=== PATIENT | female | born 1985 | race Caucasian/White ===

== ENCOUNTER 2020-01-20 04:59 | Emergency (ER) | payer OTHER, MEDICAID, SELFPAY ==
--- NOTE | ~2020-01-20 | CT_ITS ---
EXAMINATION: CT abdomen pelvis wo con DATE: 01/20/2020 06:30 INDICATION: Left flank pain. Urinary tract infection. History of nephrolithiasis. TECHNIQUE: Computed tomography (CT) of the abdomen and pelvis was performed without intravenous contr ast. Automated exposure control and iterative reconstruction technique were employed. Exam dose: 644 .41 mGy-cm total exam DLP. COMPARISON: 01/28/2013 CT abdomen pelvis with IV contrast material FINDINGS: The lung bases are clear. Normal heart size. No pericardial or pleural effusion. The liver, gallbladder, bile ducts, spleen, pancreas and pancreatic duct, and adrenal glands and kidn eys are unremarkable. No urinary tract calculus or hydroureteronephrosis. Normal caliber of the abdom inal aorta. No intraperitoneal or retroperitoneal or pelvic mass lesion or adenopathy or ascites. Normal appendix. No bowel obstruction or intraperitoneal free air, bowel wall thickening or pneumatos is. Small fat-containing umbilical hernia. The uterus, urinary bladder, adnexal areas are unremarkable. Bilateral L5 pars interarticularis defects and associated grade 1 anterolisthesis at L5-S1. Included skeletal structures are otherwise unremarkable. 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 Reviewed, dictated and finalized at [facility].
[2020-01-20 05:06] VITALS: BP 145/91; PULSE 87; RESP 20; TEMP 36.4; O2SAT 100
--- NOTE | 2020-01-20 05:08 | ED.ABDPAIN ---
HPI - Abdominal Pain General Chief Complaint: Abdominal Pain Stated Complaint: abd pain/blood in urine Time Seen by Provider: 01/20/20 05:06 Source: patient Mode of arrival: ambulatory Limitations: no limitations History of Present Illness HPI narrative: Patient is a 34-year-old [place] female with a history of IgA nephropathy who presents for evaluation of hematuria, dysuria, frequency and urgency. Patient states onset of symptoms began yesterday. She has had associated suprapubic pain, pain in her lower back in a bandlike pattern. No colicky flank pain. No history of nephrolithiasis per patient. No fever, chills, nausea or vomiting. Patient follows with bomb squad officer at [facility]. Her last checkup was normal. She is not on any maintenance therapy or steroids for the HSP nephropathy. Patient denies vaginal bleeding or discharge. Related Data Home Medications Medication Instructions Recorded Confirmed albuterol sulfate INHALATION 01/20/20 ergocalciferol (vitamin D2) 01/20/20 losartan 01/20/20 omeprazole 01/20/20 Allergies Allergy/AdvReac Type Severity Reaction Status Date / Time Sulfa (Sulfonamide Allergy Intermediate Rash Verified 01/20/20 05:10 Antibiotics) codeine Allergy Mild Itching Verified 01/20/20 05:10 lisinopril Allergy Anaphylaxis Verified 01/20/20 05:10 Review of Systems Review of Systems: Narrative: CONSTITUTIONAL: Denies fever, chills, or sweats. CARDIOVASCULAR: Denies chest pain, palpitations, or edema. RESPIRATORY: Denies cough or dyspnea. GASTROINTESTINAL: Reports suprapubic pain, denies nausea, vomiting or diarrhea GENITOURINARY: Reports dysuria, hematuria, frequency, hesitancy SKIN: Denies rash or itching. MUSCULOSKELETAL: Reports lower back pain, denies flank pain NEUROLOGIC: Denies headache, numbness, or weakness. [facility] Past Medical History Medical History (Updated 01/20/20 @ 06:55 by Sadaf Jim MD) Anemia Anxiety Asthma Bronchitis Frequent headaches IgA nephropathy Nephrolithiasis Scoliosis Stage 1 chronic kidney disease Surgical History Surgical History (Updated 01/20/20 @ 05:10 by Sadaf Jim MD) H/O wisdom tooth extraction Exam Narrative: Exam Narrative: GENERAL: Awake, alert, conversant HEAD: Normocephalic, atraumatic. EYES: PERRLA and EOMI. ENT: Nares clear, no rhinorrhea or epistaxis. Mucous membranes moist. NECK: Supple. CHEST: No respiratory distress, breathing even and non labored HEART: Regular rate, sinus rhythm ABDOMEN: Suprapubic tenderness, lower lumbar tenderness, no CVA tenderness EXTREMITIES: Normal range of motion. No edema. SKIN: Warm, dry, no rash. NEURO:No focal deficits. Alert and oriented x3 Course Vital Signs Vital signs: Vital Signs Temperature 36.4 C L 01/20/20 05:06 Pulse Rate 87 01/20/20 05:06 Respiratory Rate 20 01/20/20 05:06 Blood Pressure 145/91 H 01/20/20 05:06 Pulse Oximetry 100 01/20/20 05:06 Temperature 36.4 C L 01/20/20 05:06 Pulse Rate 87 01/20/20 05:06 Respiratory Rate 01/20/20 05:06 Blood Pressure 145/91 H 01/20/20 05:06 Pulse Oximetry 100 01/20/20 05:06 MDM - Abdominal Pain MDM Narrative Medical decision making narrative: Patient presented for evaluation of dysuria, hesitancy, frequency, flank pain. Clinical symptoms are most consistent with pyelonephritis. IV access obtained and labs were drawn. Laboratory results notable for leukocytosis, no acute kidney injury. Patient with a urinary tract infection. Patient with possible history of nephrolithiasis, although it does not seem consistent with colicky type pain, did obtain a CT scan after shared decision-making occurred with the patient, and no nephrolithiasis on imaging. Patient signs and symptoms most consistent with pyelonephritis. She was given first dose of IV antibiotics in the ER, tolerating oral intake, was discharged home with follow-up with her bomb squad officer versus return if symp
[2020-01-20] MEDS: ACETAMINOPHEN 500 MG TABLET 1000 MG PO (05:28)
[2020-01-20 05:29] LABS: Basophils Absolute Auto 0.1 K/mm3 (0.0-0.1); Basophils Percent Auto 0.6 % (0.2-1.2); Eosinophils Absolute Auto 0.2 K/mm3 (0-0.3); Eosinophils Percent Auto 1.3 % (0-4.4); Hematocrit 44.4 % (37.0-47.0); Hemoglobin 14.4 g/dL (12.0-15.0); Immature Granulocyte Absolute 0.04 K/mm3 (0.00-0.031); Immature Granulocyte Percent A 0.3 % (0-0.5); Immature Platelet Fraction Pct 16.3 % (0.9-11.2); Lymphocytes Absolute Auto 3.58 K/mm3 (0.9-3.2); Lymphocytes Percent Auto 25.9 % (18.3-44.2); Mean Corpuscular HGB Conc 32.4 g/dl (32-36); Mean Corpuscular Volume 89.3 fl (80-100); Mean Platelet Volume 13.4 fl (7.4-10.4); Monocytes Absolute Auto 0.8 K/mm3 (0.1-0.6); Monocytes Percent Auto 5.9 % (2.6-8.5); Neutrophils Absolute Auto 9.1 K/mm3 (1.3-6.7); Platelet Count Result 204 k/mm3 (150-375); Red Blood Count 4.97 M/mm3 (4.2-5.4); Red Cell Distribution Width 12.6 % (11.5-14.5); White Blood Count 13.8 K/mm3 (4.5-10.0)
[2020-01-20 05:38] LABS: Add Urine Microscopic? YES; Alanine Aminotransferase 17 U/L (4-35); Albumin Level 4.7 g/dL (3.5-5.1); Alkaline Phosphatase 103 U/L (38-126); Appearance Urine Cloudy (Clear); Aspartate Amino Transferase 25 U/L (14-36); Bacteria Urine Trace /hpf; Bilirubin Urine Negative (Negative); Bilirubin,Total 0.3 mg/dL (0.2-1.3); Blood Urea Nitrogen 12 mg/dL (7-17); Blood Urine 3+ (Negative); Calcium 8.9 mg/dL (8.4-10.2); Carbon Dioxide 27 mmol/L (22-30); Chloride 104 mmol/L (98-107); Color Urine Red (Yellow); Estimated CRCL calculation 79 ml/min; Estimated Glomerular Filt Rate > 60; Glucose 96 mg/dL (65-105); Glucose Urine UA Negative (Negative); Ketones Urine Negative (Negative); Leukocyte Esterase Ur 3+ LEU/UL (Negative); Lipase 115 U/L (23-300); Nitrate Urine Negative (Negative); Potassium 3.9 mmol/L (3.4-5.0); Protein Urine 2+ mg/dL (Negative); RBC Urine >75 /hpf (0-2); Sodium 139 mmol/L (137-145); Specific Grav Ur 1.006 (1.001-1.035); Squamous Epithelial Cell Urine Many /hpf (Few); Urobilinogen Urine Negative mg/dL (<2.0); WBC Urine >75 /hpf
[2020-01-20 07:04] VITALS: BP 132/70; PULSE 74; RESP 16; O2SAT 98
== END 2020-01-20 07:05 | disposition home or self-care (01) ==
PROVIDERS: Emergency Provider Emergency Medicine
DX: N10 Acute pyelonephritis (principal); N18.1 Chronic kidney disease, stage 1; N02.8 Recurrent and persistent hematuria with other morphologic changes; J45.909 Unspecified asthma, uncomplicated; Z87.442 Personal history of urinary calculi; Z86.2 Personal history of diseases of the blood and blood-forming organs and certain disorders involving the immune mechanism
CPT/HCPCS: 36415; 74176; 80053; 81001; 81025; 83690; 85025; 85055; 87077; 87086; 87088; 87186; 96365; 99284; A9270; J0696

== ENCOUNTER 2020-03-20 09:14 | Outpatient (CLI) | payer OTHER, MEDICAID, SELFPAY ==
--- NOTE | 2020-03-20 10:45 | NEURO_ITS ---
Patient Number: [id number] Impression: # Complains of right upper extremity pain and numbness. # Evolving right Carpal Tunnel Syndrome. # No ulnar neuropathy. # Normal needle/EMG exam. # Clinical correlation recommended. Nerve Conduction Studies Anti Sensory Summary Table Stim Site NR Peak (ms) P-T Amp (?V) Site1 Site2 Delta-P (ms) Dist (cm) Justin (m/s) Left Median Anti Sensory (2-3nd Digit) Wrist 2.8 89.8 Wrist 2-3nd Digit 2.8 14.0 50 Wrist 2.7 95.9 Wrist 2-3nd Digit 2.8 14.0 50 Right Median Anti Sensory (2-3nd Digit) Wrist 3.0 76.3 Wrist 2-3nd Digit 3.0 14.0 47 Wrist 3.3 71.4 Wrist 2-3nd Digit 3.0 14.0 47 Left Radial Anti Sensory (Base 1st Digit) Wrist 1.8 36.2 Wrist Base 1st Digit 1.8 0.0 Right Radial Anti Sensory (Base 1st Digit) Wrist 2.0 24.6 Wrist Base 1st Digit 2.0 0.0 Left Ulnar Anti Sensory (5th Digit) Wrist 2.2 78.2 Wrist 5th Digit 2.2 14.0 64 Right Ulnar Anti Sensory (5th Digit) Wrist 2.4 72.8 Wrist 5th Digit 2.4 14.0 58 Motor Summary Table Stim Site NR Onset (ms) O-P Amp (mV) Site1 Site2 Delta-0 (ms) Dist (cm) Justin (m/s) Left Median Motor (Abd Poll Brev) Wrist 2.4 5.5 Elbow Wrist 4.6 28.0 61 Elbow 7.0 5.2 Right Median Motor (Abd Poll Brev) Wrist 3.6 1.3 Elbow Wrist 4.7 28.0 60 Elbow 8.3 1.6 Left Ulnar Motor (Abd Dig Minimi) Wrist 2.0 5.4 A Elbow Wrist 4.6 28.0 61 A Elbow 6.6 5.0 Right Ulnar Motor (Abd Dig Minimi) Wrist 2.4 4.0 A Elbow Wrist 4.6 28.0 61 A Elbow 7.0 3.4 F Wave Studies NR F-Lat (ms) L-R F-Lat (ms) Left Median (Mrkrs) (Abd Poll Brev) 27.11 0.16 Right Median (Mrkrs) (Abd Poll Brev) 27.27 0.16 Left Ulnar (Mrkrs) (Abd Dig Min) 26.75 0.00 Right Ulnar (Mrkrs) (Abd Dig Min) 26.75 0.00 EMG Side Muscle Nerve Root Ins Act Fibs Amp Dur Recrt Comment Right 1stDorInt Ulnar C8-T1 Nml Nml Nml Nml Nml Right Ext Indicis Radial (Post Int) C7-8 Nml Nml Nml Nml Nml Right Ext Digitorum Radial (Post Int) C7-8 Nml Nml Nml Nml Nml Right BrachioRad Radial C5-6 Nml Nml Nml Nml Nml Right PronatorTeres Median C6-7 Nml Nml Nml Nml Nml Right Abd Poll Brev Median C8-T1 Nml Nml Nml Nml Nml Left 1stDorInt Ulnar C8-T1 Nml Nml Nml Nml Nml Left Ext Indicis Radial (Post Int) C7-8 Nml Nml Nml Nml Nml Left Ext Digitorum Radial (Post Int) C7-8 Nml Nml Nml Nml Nml Left BrachioRad Radial C5-6 Nml Nml Nml Nml Nml Left PronatorTeres Median C6-7 Nml Nml Nml Nml Nml Left Abd Poll Brev Median C8-T1 Nml Nml Nml Nml Nml MTDD
== END 2020-03-20 09:15 | disposition home or self-care (01) ==
LOC: ANHNEURO 09:16
PROVIDERS: PCP Internal Medicine; Visit Provider Internal Medicine
DX: G56.03 Carpal tunnel syndrome, bilateral upper limbs (principal)
CPT/HCPCS: 95886; 95911

== ENCOUNTER 2022-09-29 09:46 | Outpatient (CLI) | payer OTHER, MEDICAID, SELFPAY ==
[2022-09-29] VITALS (18 sets, daily range): BP systolic 125–150; BP diastolic 70–90; PULSE 62–83; TEMP 36.9; BMI 29.6
[2022-09-29 10:42] LABS: Appearance Urine Clear (Clear); Basophils Absolute Auto 0.1 K/mm3 (0.0-0.1); Basophils Percent Auto 0.7 % (0.2-1.2); Bilirubin Urine Negative (Negative); Blood Urine Trace-intact (Negative); Color Urine Yellow (Yellow); Eosinophils Absolute Auto 0.1 K/mm3 (0-0.3); Eosinophils Percent Auto 0.8 % (0-4.4); Glucose Urine UA Negative (Negative); Hematocrit 34.2 % (37.0-47.0); Hemoglobin 11.5 g/dL (12.0-15.0); Immature Granulocyte Absolute 0.08 K/mm3 (0.00-0.031); Immature Granulocyte Percent A 0.8 % (0-0.5); Ketones Urine Negative (Negative); Leukocyte Esterase Ur Negative LEU/UL (Negative); Lymphocytes Absolute Auto 1.69 K/mm3 (0.9-3.2); Mean Corpuscular HGB Conc 33.6 g/dl (32-36); Mean Corpuscular Hemoglobin 29.7 pg (26-34); Mean Corpuscular Volume 88.4 fl (80-100); Mean Platelet Volume 12.8 fl (7.4-10.4); Monocytes Absolute Auto 0.4 K/mm3 (0.1-0.6); Monocytes Percent Auto 4.2 % (2.6-8.5); Neutrophils Absolute Auto 8.2 K/mm3 (1.3-6.7); Neutrophils Percent Auto 77.5 % (45.5-73.1); Nitrate Urine Negative (Negative); Platelet Count Result 180 k/mm3 (150-375); Protein Urine 2+ mg/dL (Negative); Red Blood Count 3.87 M/mm3 (4.2-5.4); Red Cell Distribution Width 12.9 % (11.5-14.5); Specific Grav Ur 1.015 (1.001-1.035); Urobilinogen Urine 0.2 mg/dL (<2.0); White Blood Count 10.6 K/mm3 (4.5-10.0)
[2022-09-29 10:50] LABS: Creatinine Urine 97.2 mg/dL; Total Protein Urine Random 129 mg/dL; Ur Ttl Prot Creatinine Ratio 1.33 mg/mg (0-0.20)
[2022-09-29 10:53] LABS: Bacteria Urine Trace /hpf; Squamous Epithelial Cell Urine Few /hpf (Few)
[2022-09-29 10:57] LABS: Add Urine Microscopic? YES; Alanine Aminotransferase 25 U/L (6-35); Albumin Level 3.6 g/dL (3.5-5.1); Alkaline Phosphatase 63 U/L (38-126); Anion Gap 6 mmol/L (8-16); Aspartate Amino Transferase 31 U/L (14-36); Bilirubin,Total 0.2 mg/dL (0.2-1.3); Blood Urea Nitrogen 6 mg/dL (7-17); Calcium 7.9 mg/dL (8.4-10.2); Carbon Dioxide 22 mmol/L (22-30); Chloride 107 mmol/L (98-107); Estimated Glomerular Filt Rate > 60; Glucose 112 mg/dL (65-110); Potassium 3.3 mmol/L (3.4-5.0); Sodium 135 mmol/L (137-145); Uric Acid 2.9 mg/dL (2.5-7.5)
--- NOTE | 2022-09-29 11:26 | PC.NURSE ---
William Rios CNM informed of BP's , lab results, and FHT's 145 at 20 6/7 wks. Informed pt took 1000 mg of Tylenol at 0800 and she still has a headache. CNM reviewed pt's earlier labs in . Orders received.
[2022-09-29] MEDS: LACTATED RINGERS 500 ML 999 ML IV CONT (12:25)
[2022-09-29] MEDS: diphenhydrAMINE HCl INJ 50 MG/ML VIAL 25 MG IV PUSH (12:27)
[2022-09-29] MEDS: METOCLOPRAMIDE HCL INJ 10 MG/2 ML VIAL IV PUSH (12:31)
--- NOTE | 2022-09-29 14:28 | PC.NURSE ---
Pt woke as I entered the room. States she is just feeling pressure around her right eye now that she rates as a 2 out of 10. The throbbing in the back of her head has resolved. Pt's dye jig operator salad brought back for her to eat.
--- NOTE | 2022-09-29 14:38 | PC.NURSE ---
William Rios [facility] returned page and informed of BP's. The only elevated BP of 150/90 was when pt was up to the bathroom and heard her BP cuff inflating and rushed back to bed and put it on. Discussed her headache is just pressure around her right eye she rates as a 2 out of 10. Orders for pt to complete 24 hr urine collection at home and return specimen when completed and to be seen in office next week.
== END 2022-09-29 15:15 | disposition home or self-care (01) ==
LOC: ANHOBOP 09:53 → ANHOBPP 09:54
PROVIDERS: PCP Internal Medicine; Visit Provider Advanced Practice Midwife
DX: O13.9 Gestational [pregnancy-induced] hypertension without significant proteinuria, unspecified trimester (principal); Z3A.00 Weeks of gestation of pregnancy not specified
CPT/HCPCS: 36415; 80053; 81001; 82570; 84156; 84550; 85025; 87086; 96361; 96374; 96375; 99199; J1200; J2765; J7120

== ENCOUNTER 2022-09-30 10:22 | Outpatient (CLI) | payer OTHER, MEDICAID, SELFPAY ==
[2022-09-30 11:32] VITALS: BMI 29.6
[2022-09-30 14:27] LABS: Collection Time Urine 24 HOURS
[2022-09-30 14:33] LABS: Total Volume 24 Hour Urine 3100 ml
[2022-09-30 14:34] LABS: Patient Weight 195 Lbs
[2022-09-30 14:40] LABS: Creatinine Clearance Urine 139.2 ml/min (75-125); Creatinine Urine 45.2 mg/dL; Total Protein Urine Random 59 mg/dL
[2022-09-30 15:18] LABS: Specific Gravity Ur 1.012
[2022-09-30 15:19] LABS: Total Protein Urine 24 Hr 1829 mg/24hr (28-141)
== END 2022-09-30 10:23 | disposition home or self-care (01) ==
PROVIDERS: PCP Internal Medicine; Visit Provider Advanced Practice Midwife
DX: O13.9 Gestational [pregnancy-induced] hypertension without significant proteinuria, unspecified trimester (principal); Z3A.00 Weeks of gestation of pregnancy not specified
CPT/HCPCS: 81050; 82575; 84156

== ENCOUNTER 2022-12-29 15:45 | Observation (INO) | payer OTHER, MEDICAID, SELFPAY ==
[2022-12-29] VITALS (10 sets, daily range): BP systolic 127–151; BP diastolic 68–89; PULSE 69–78; RESP 16–20; TEMP 36.3–36.4; O2SAT 97–98; BMI 32.8
[2022-12-29] MEDS: BETAMETHASONE SOD PHOS/ACETATE 30 MG/5 ML VIAL 12 MG IM (17:31)
[2022-12-29] MEDS: ACETAMINOPHEN 500 MG TABLET 1000 MG PO (17:31)
[2022-12-29] MEDS: LABETALOL HCL 100 MG TABLET 200 MG PO (17:56)
--- NOTE | 2022-12-29 20:22 | PC.NURSE ---
Dr. Mooney updated on PT BP of 151/78 with a 15min repeat of 131/78. Orders to call if PT has consecutive BPs over 150.
[2022-12-29] MEDS: diphenhydrAMINE HCl CAP 25 MG CAPSULE PO (22:38)
[2022-12-30] VITALS (51 sets, daily range): BP systolic 124–150; BP diastolic 59–84; PULSE 69–96; RESP 14–20; TEMP 36.3–36.7; O2SAT 96–100; BMI 33.0
--- NOTE | 2022-12-30 05:23 | PC.NURSE ---
RN confirmed with Dr. Mooney PT to have PCR sent. Orders to send PCR.
[2022-12-30 05:39] LABS: Basophils Absolute Auto 0.1 K/mm3 (0.0-0.1); Basophils Percent Auto 0.4 % (0.2-1.2); Hematocrit 34.7 % (37.0-47.0); Hemoglobin 11.7 g/dL (12.0-15.0); Immature Granulocyte Absolute 0.21 K/mm3 (0.00-0.031); Immature Granulocyte Percent A 1.4 % (0-0.5); Lymphocytes Absolute Auto 1.06 K/mm3 (0.9-3.2); Lymphocytes Percent Auto 6.9 % (18.3-44.2); Mean Corpuscular HGB Conc 33.7 g/dl (32-36); Mean Platelet Volume 12.9 fl (7.4-10.4); Monocytes Absolute Auto 0.4 K/mm3 (0.1-0.6); Monocytes Percent Auto 2.6 % (2.6-8.5); Neutrophils Absolute Auto 13.6 K/mm3 (1.3-6.7); Neutrophils Percent Auto 88.7 % (45.5-73.1); Platelet Count Result 202 k/mm3 (150-375); Red Cell Distribution Width 13.5 % (11.5-14.5); White Blood Count 15.4 K/mm3 (4.5-10.0)
[2022-12-30 05:45] LABS: Creatinine Urine 140.3 mg/dL; Total Protein Urine Random 97 mg/dL; Ur Ttl Prot Creatinine Ratio 0.69 mg/mg (0-0.20)
[2022-12-30 05:50] LABS: Albumin Level 3.6 g/dL (3.5-5.1); Alkaline Phosphatase 96 U/L (38-126); Anion Gap 7 mmol/L (8-16); Aspartate Amino Transferase 22 U/L (14-36); Bilirubin,Total 0.4 mg/dL (0.2-1.3); Blood Urea Nitrogen 6 mg/dL (7-17); Calcium 8.6 mg/dL (8.4-10.2); Carbon Dioxide 21 mmol/L (22-30); Chloride 106 mmol/L (98-107); Estimated CRCL calculation 136 ml/min; Estimated Glomerular Filt Rate > 60; Glucose 139 mg/dL (65-110); Sodium 134 mmol/L (137-145); Uric Acid 3.7 mg/dL (2.5-7.5)
[2022-12-30 05:55] LABS: Alanine Aminotransferase 39 U/L (6-35)
--- NOTE | 2022-12-30 06:33 | PC.NURSE ---
Report given to Ulisses Castillo RN
[2022-12-30] MEDS: LABETALOL HCL 100 MG TABLET 200 MG PO ×2 (06:39→18:16)
--- NOTE | 2022-12-30 08:27 | PM.IMHP ---
H&P: HPI History of Present Illness Date/Time: 12/30/22 08:27 Chief Complaint: Headache Narrative: 36 y/o at 34 weeks. history: x 2 at 34 and 36 weeks. Early delivery for pre e. Current : complicated by underlying kidney disease and hypertension. Previous visits:Elevated 24 hour total protein Current visit: Headache completely resolved. BP stable overall. Did have 2 elevated. Pt feels it was a stress response to finding out a/c needs to be replaced. ALT slightly elevated. Other labs normal. Awaiting completion of 24 hour urine. Has had steriods. Exam: vss, afebrile, no pain or discomfort, abdomen soft, fhr category 1, 1+ edema in lower ext, no clonus Medical history: Chronic kidney disease, hypertension, anemia, asthma Plan: Complete 24 hour urine and repeat labs at the same time. [facility] Past Medical History Medical History (Updated 12/30/22 @ 08:34 by Felicia Bonilla CNM) Anemia Anxiety Asthma Bronchitis Frequent headaches IgA nephropathy Nephrolithiasis Scoliosis Stage 1 chronic kidney disease Surgical History Surgical History (Updated 01/20/20 @ 05:10 by Sadaf Jim MD) H/O wisdom tooth extraction Meds Home Medications and Allergies Home Medications Medication Instructions Recorded Confirmed Type albuterol sulfate 90 mcg/actuation 2 puff inhalation Q4H PRN 01/20/20 12/29/22 History aerosol inhaler Shortness Of Breath acetaminophen 500 mg capsule 1,000 mg PO Q6H PRN fever or pain 09/29/22 12/29/22 History aspirin 81 mg capsule 162 mg PO DAILY 09/29/22 12/29/22 History docusate sodium 100 mg capsule 100 mg PO BID PRN Constipation 09/29/22 12/29/22 History omeprazole 40 mg capsule,delayed 40 mg PO DAILY 09/29/22 12/29/22 History release vit no.95-ferrous 1 tablet PO DAILY 09/29/22 12/29/22 History fumarate 28 mg-folic acid 800 mcg tablet () ferrous sulfate 325 mg (65 mg 160 mg PO DAILY 12/29/22 12/29/22 History iron) tablet (Iron (ferrous sulfate)) labetalol 200 mg tablet 200 mg PO Q12H 12/29/22 12/29/22 History Allergies Allergy/AdvReac Type Severity Reaction Status Date / Time Sulfa (Sulfonamide Allergy Intermediate Rash Verified 01/20/20 05:10 Antibiotics) codeine Allergy Mild Itching Verified 01/20/20 05:10 lisinopril Allergy Anaphylaxis Verified 01/20/20 05:10 Vital Signs Vital Signs - 24 hr 12/29/22 16:31 12/29/22 17:00 12/29/22 17:15 Temperature Pulse Rate 78 72 74 Respiratory Rate Blood Pressure 130/79 140/85 144/89 H Blood Pressure [Left Arm] Pulse Oximetry Oxygen Delivery 12/29/22 18:02 12/29/22 20:06 12/29/22 20:07 Temperature Pulse Rate 69 78 Respiratory Rate Blood Pressure 144/75 H 151/78 H Blood Pressure [Left Arm] Pulse Oximetry 98 Oxygen Delivery 12/29/22 20:16 12/29/22 22:33 12/30/22 02:02 Temperature Pulse Rate 75 74 Respiratory Rate Blood Pressure 131/78 127/68 Blood Pressure [Left Arm] Pulse Oximetry 97 98 Oxygen Delivery 12/30/22 02:03 12/30/22 05:02 12/30/22 05:03 Temperature Pulse Rate 81 84 Respiratory Rate Blood Pressure 127/72 135/67 Blood Pressure [Left Arm] Pulse Oximetry 97 Oxygen Delivery 12/30/22 06:38 12/30/22 06:39 12/29/22 17:56 Temperature Pulse Rate 70 77 Respiratory Rate Blood Pressure 128/74 Blood Pressure [Left Arm] Pulse Oximetry 96 Oxygen Delivery 12/29/22 16:30 12/29/22 17:00 12/29/22 18:09 Temperature 97.5 F L Pulse Rate 77 Respiratory Rate 20 Blood Pressure Blood Pressure [Left Arm] 144/88 H Pulse Oximetry Oxygen Delivery Room Air 12/29/22 18:45 12/29/22 20:07 12/30/22 02:03 Temperature 97.3 F L 97.4 F L Pulse Rate Respiratory Rate 16 14 Blood Pressure Blood Pressure [Left Arm] Pulse Oximetry Oxygen Delivery Room Air 12/30/22 06:39 12/30/22 06:38 Temperature Pulse Rate 96 Respiratory Rate
[2022-12-30] MEDS: ASPIRIN 81 MG CHEWABLE TABLET 162 MG PO (09:48)
[2022-12-30] MEDS: FERROUS SULFATE 324 MG TABLET PO (09:48)
[2022-12-30] MEDS: PANTOPRAZOLE 40 MG TABLET PO (09:48)
[2022-12-30] MEDS: DOCUSATE SODIUM 100 MG CAPSULE PO (12:56)
[2022-12-30] MEDS: MULTIVIT/MIN/PREN/FOL AC/IRON TABLET 1 TAB PO (12:56)
[2022-12-30] MEDS: ACETAMINOPHEN 500 MG TABLET 1000 MG PO (13:00)
[2022-12-30 16:35] LABS: Collection Time Urine 24 HOURS; Total Volume 24 Hour Urine 2800 ml
[2022-12-30 16:38] LABS: Hematocrit 32.8 % (37.0-47.0); Mean Corpuscular HGB Conc 33.5 g/dl (32-36); Mean Corpuscular Hemoglobin 30.2 pg (26-34); Mean Corpuscular Volume 90.1 fl (80-100); Mean Platelet Volume 12.7 fl (7.4-10.4); Platelet Count Result 197 k/mm3 (150-375); Red Blood Count 3.64 M/mm3 (4.2-5.4); Red Cell Distribution Width 13.5 % (11.5-14.5); White Blood Count 13.4 K/mm3 (4.5-10.0)
[2022-12-30 16:41] LABS: Alanine Aminotransferase 21 U/L (6-35); Albumin Level 3.4 g/dL (3.5-5.1); Alkaline Phosphatase 104 U/L (38-126); Anion Gap 6 mmol/L (8-16); Aspartate Amino Transferase 20 U/L (14-36); Bilirubin,Total 0.4 mg/dL (0.2-1.3); Blood Urea Nitrogen 9 mg/dL (7-17); Calcium 8.7 mg/dL (8.4-10.2); Carbon Dioxide 22 mmol/L (22-30); Chloride 107 mmol/L (98-107); Estimated CRCL calculation 136 ml/min; Estimated Glomerular Filt Rate > 60; Glucose 132 mg/dL (65-110); Potassium 3.4 mmol/L (3.4-5.0); Sodium 135 mmol/L (137-145); Uric Acid 3.4 mg/dL (2.5-7.5)
[2022-12-30 16:50] LABS: Creatinine Urine 68.1 mg/dL; Patient Weight 217 Lbs; Total Protein Urine Random 94 mg/dL
[2022-12-30] MEDS: BETAMETHASONE SOD PHOS/ACETATE 30 MG/5 ML VIAL 12 MG IM (17:13)
--- NOTE | 2022-12-30 18:16 | PC.NURSE ---
Called lab because 24 hr urine collection results not back yet. Lab will look for specimen.
--- NOTE | 2022-12-30 18:29 | PC.NURSE ---
Called lab back because the 24 hr total protein was resulted as >600. Informed lab that we need an actual number not just a > amount. Informed them this pt has chronic kidney disease and her baseline 24 hr total protein was over 1000.
[2022-12-30] MEDS: CALCIUM CARBONATE (TUMS) 500 MG (200 MG ELEMENTAL) PO (19:06)
--- NOTE | 2022-12-30 19:23 | PC.NURSE ---
RN contacted lab regarding 24hr total protein reading > 600. RN informed lab a more specific number was needed. network technical analyst states this is the highest number we can give and have always gave, I will have to talk to my medical staff manager. RN also notified lab that the date on the urine was incorrect and should be changed from 12/29/22 to 12/30/22 and the brush clearing laborer stated we always use the date the urine was started.
--- NOTE | 2022-12-30 19:37 | PC.NURSE ---
Dr. Mooney notified of PT labs, vitals, PT frontal headache rating it a 2 on a scale of 1-10. Orders for discharge received.
--- NOTE | 2022-12-30 20:25 | PC.NURSE ---
Discharge orders received by Dr. Mooney, discharge instructions given to PT, PT verbalizes understanding. PT given opportunity to to ask questions with all questions answered. PT stable at this time.
[2022-12-31 14:24] LABS: Total Protein Urine 24 Hr 2632 mg/24hr (28-141)
--- NOTE | 2023-01-30 21:32 | P.PNOB_ITS ---
OB - Triage/Final Diagnosis Visit Information Comments/Additional reasons for admission: I have assessed the risk for this patient, Bindu Zuñiga, and determined that she would benefit from observation care. Evaluation Laboratory results: Laboratory Tests 12/29/22 12/30/22 12/30/22 16:18 05:07 16:18 WBC 15.4 H 13.4 H RBC 3.90 L 3.64 L Hgb 11.7 L 11.0 L Hct 34.7 L 32.8 L MCV 89.0 90.1 MCH 30.0 30.2 MCHC 33.7 33.5 RDW 13.5 13.5 Plt Count 202 197 MPV 12.9 H 12.7 H Immature Gran % (Auto) 1.4 H Neut % (Auto) 88.7 H Lymph % (Auto) 6.9 L Smyth % (Auto) 2.6 Eos % (Auto) 0.0 Baso % (Auto) 0.4 Lymph # (Auto) 1.06 Smyth # (Auto) 0.4 Eos # (Auto) 0.0 Baso # (Auto) 0.1 Abs Immat Gran (auto) 0.21 H Absolute Neuts (auto) 13.6 H Absolute Nucleated RBC 0.0 Nucleated RBC % 0.0 Sodium 134 L 135 L Potassium 4.0 3.4 Chloride 106 107 Carbon Dioxide 21 L 22 Anion Gap 7 L 6 L BUN 6 L 9 Creatinine 0.60 L 0.60 L Estim Creat Clear Calc 136 136 Estimated GFR > 60 > 60 Glucose 139 H 132 H Uric Acid 3.7 3.4 Calcium 8.6 8.7 Total Bilirubin 0.4 0.4 AST 22 20 ALT 39 H 21 Alkaline Phosphatase 96 104 Total Protein 7.0 7.0 Albumin 3.6 3.4 L U Random Total Protein 94 97 Ur 24 Hour Volume 2800 Urine Creatinine 68.1 140.3 Creatinine Clearance 181.0 H Ur Total Protein 24 Hr 2632 H Protein/Creat Ratio 2 0.69 H Final Diagnosis (1) Headache: Code(s): R51.9 - Headache, unspecified Status: Acute
== END 2022-12-30 20:25 | disposition home or self-care (01) ==
PROVIDERS: Admitting Provider Obstetrics & Gynecology; PCP Internal Medicine; Visit Provider Obstetrics & Gynecology
DX: O26.893 Other specified pregnancy related conditions, third trimester (principal); R51.9 Headache, unspecified; O99.891 Other specified diseases and conditions complicating pregnancy; I12.9 Hypertensive chronic kidney disease with stage 1 through stage 4 chronic kidney disease, or unspecified chronic kidney disease; N18.1 Chronic kidney disease, stage 1; Z3A.33 33 weeks gestation of pregnancy; Z79.51 Long term (current) use of inhaled steroids; Z79.1 Long term (current) use of non-steroidal anti-inflammatories (NSAID); Z79.82 Long term (current) use of aspirin; Z79.899 Other long term (current) drug therapy
CPT/HCPCS: 36415; 59025; 80053; 81050; 82570; 82575; 84156; 84550; 85025; 85027; 96374; A9270; G0378; G0379; J0702

== ENCOUNTER 2023-01-06 23:45 | Inpatient (IN) | payer OTHER, MEDICAID, SELFPAY ==
[2023-01-07] VITALS (184 sets, daily range): BP systolic 102–167; BP diastolic 56–94; PULSE 52–98; RESP 16–18; TEMP 36.2–36.6; O2SAT 84–100; BMI 33.6
[2023-01-07 00:44] LABS: Basophils Absolute Auto 0.1 K/mm3 (0.0-0.1); Basophils Percent Auto 0.6 % (0.2-1.2); Eosinophils Absolute Auto 0.2 K/mm3 (0-0.3); Eosinophils Percent Auto 1.9 % (0-4.4); Hemoglobin 10.5 g/dL (12.0-15.0); Immature Granulocyte Absolute 0.37 K/mm3 (0.00-0.031); Immature Granulocyte Percent A 3.3 % (0-0.5); Lymphocytes Absolute Auto 2.03 K/mm3 (0.9-3.2); Lymphocytes Percent Auto 18.2 % (18.3-44.2); Mean Corpuscular HGB Conc 32.8 g/dl (32-36); Mean Corpuscular Hemoglobin 29.2 pg (26-34); Mean Corpuscular Volume 88.9 fl (80-100); Mean Platelet Volume 12.9 fl (7.4-10.4); Monocytes Absolute Auto 0.8 K/mm3 (0.1-0.6); Monocytes Percent Auto 6.8 % (2.6-8.5); Neutrophils Absolute Auto 7.7 K/mm3 (1.3-6.7); Neutrophils Percent Auto 69.2 % (45.5-73.1); Platelet Count Result 192 k/mm3 (150-375); Red Cell Distribution Width 13.3 % (11.5-14.5); White Blood Count 11.2 K/mm3 (4.5-10.0)
[2023-01-07 00:54] LABS: Alanine Aminotransferase 24 U/L (6-35); Albumin Level 3.3 g/dL (3.5-5.1); Alkaline Phosphatase 105 U/L (38-126); Anion Gap 8 mmol/L (8-16); Aspartate Amino Transferase 24 U/L (14-36); Bilirubin,Total 0.3 mg/dL (0.2-1.3); Blood Urea Nitrogen 9 mg/dL (7-17); Calcium 8.1 mg/dL (8.4-10.2); Carbon Dioxide 19 mmol/L (22-30); Chloride 106 mmol/L (98-107); Estimated Glomerular Filt Rate > 60; Glucose 128 mg/dL (65-110); Potassium 3.6 mmol/L (3.4-5.0); Sodium 133 mmol/L (137-145)
[2023-01-07 00:56] LABS: Uric Acid 3.8 mg/dL (2.5-7.5)
[2023-01-07] MEDS: LACTATED RINGERS 1,000 ML 75 ML IV CONT ×2 (01:17→10:28)
[2023-01-07] MEDS: OXYTOCIN 30 UNITS/NS 500 ML 30 UNITS/500 ML BAG IV CONT (01:18)
[2023-01-07] MEDS: AMPICILLIN 2 GM/NS 100 ML 2 GM/100 ML BAG IVPB (01:18)
[2023-01-07] MEDS: MAGNESIUM SULF 4 GM/WATER100ML 4 GM/100 ML BAG IVPB (01:19)
--- NOTE | 2023-01-07 01:34 | LDADM ---
This patient, Bindu Zuñiga, was admitted to Labor/Delivery/Recovery 103 on 01/06/23 at 23:45. Plans for labor, pain management and were discussed with patient. Patient/family oriented to hospital policies and general routines including ID bracelet, bed and alarms, visiting hours, pain management, procedures, bathroom and other care routines, personal items, smoking policy, room service/diet and guest tray routines, infant security routines, and visiting hours. Patient/Family are encouraged to report perceived risks to care and to ask questions if they do not understand what they are told or what they should do. See [facility]BI[facility] for further documentation.
[2023-01-07] MEDS: MAGNESIUM SULF 20GM/WATER500ML 500 ML 50 MG IV CONT ×3 (01:48→23:06)
[2023-01-07] MEDS: AMPICILLIN 1 GM/NS 50 ML 1 GM/50 ML BAG IVPB ×3 (05:25→13:41)
--- NOTE | 2023-01-07 06:30 | PM.IMHP ---
H&P: HPI History of Present Illness Date/Time: 01/07/23 06:31 Chief Complaint: induction of labor Narrative: Lorraine is a at 35.1 here for induction of labor for presumed severe PreE. She has both cHTN and chronic renal disease with baseline proteinuria. She has had a couple of worsening pressures on her labetalol 200 TID and a few intermittent CLANCY (when next dose labetalol due), and so [facility] recommended delivery for severe PreE superimposed on cHTN. Her baseline 24 hour urine at beginning of was 1000mg and her most recent 24 hour urine was lower than one she had 3 mos ago, so proteinuria has been very stable. also complicated by AMA, asthma. She had severe PreE in her other pregnancies as well. Review of Systems Review of Systems: All systems reviewed & are unremarkable except as noted in HPI and below PMFSH Past Medical History Medical History (Updated 01/07/23 @ 06:36 by Faith Barnes MD) Anemia Anxiety Asthma Bronchitis Frequent headaches IgA nephropathy Nephrolithiasis Scoliosis Stage 1 chronic kidney disease Surgical History Surgical History (Updated 01/20/20 @ 05:10 by Sadaf Jim MD) H/O wisdom tooth extraction Social History Social History Smoking status: Never smoker Substance use: never Lack of Transportation: No Lack of Food: Never True Current Housing: I Do Not Have Housing Concerned About Future Housing: No Difficulty Paying Gas/Electric Bills: No Difficulty Paying for Meds: No Currently Unemployed: No Education: High School Diploma/GED Difficulty w/ Childcare or Family Care: No Spiritual care concerns: No Meds Home Medications and Allergies Home Medications Medication Instructions Recorded Confirmed Type albuterol sulfate 90 mcg/actuation 2 puff inhalation Q4H PRN 01/20/20 01/07/23 History aerosol inhaler Shortness Of Breath acetaminophen 500 mg capsule 1,000 mg PO Q6H PRN fever or pain 09/29/22 01/07/23 History aspirin 81 mg capsule 162 mg PO DAILY 09/29/22 01/07/23 History docusate sodium 100 mg capsule 100 mg PO BID PRN Constipation 09/29/22 01/07/23 History omeprazole 40 mg capsule,delayed 40 mg PO DAILY 09/29/22 01/07/23 History release vit no.95-ferrous 1 tablet PO DAILY 09/29/22 01/07/23 History fumarate 28 mg-folic acid 800 mcg tablet () ferrous sulfate 325 mg (65 mg 160 mg PO DAILY 12/29/22 01/07/23 History iron) tablet (Iron (ferrous sulfate)) labetalol 200 mg tablet 200 mg PO TID 12/29/22 01/07/23 History Allergies Allergy/AdvReac Type Severity Reaction Status Date / Time Sulfa (Sulfonamide Allergy Intermediate Rash Verified 01/07/23 01:26 Antibiotics) codeine Allergy Mild Itching Verified 01/07/23 01:26 lisinopril Allergy Anaphylaxis Verified 01/07/23 01:26 Vital Signs Vital Signs - 24 hr 01/07/23 00:56 01/07/23 01:00 01/07/23 01:15 Temperature Pulse Rate 79 77 81 Respiratory Rate Blood Pressure 138/84 136/83 132/76 Pulse Oximetry 95 Oxygen Delivery 01/07/23 01:24 01/07/23 01:25 01/07/23 01:26 Temperature Pulse Rate 77 77 Respiratory Rate Blood Pressure 133/80 134/85 Pulse Oximetry 97 Oxygen Delivery 01/07/23 01:29 01/07/23 01:30 01/07/23 01:34 Temperature Pulse Rate 72 Respiratory Rate Blood Pressure 132/77 Pulse Oximetry 96 97 Oxygen Delivery 01/07/23 01:35 01/07/23 01:39 01/07/23 01:40 Temperature Pulse Rate 78 76 Respiratory Rate Blood Pressure 131/77 130/82 Pulse Oximetry 97 Oxygen Delivery 01/07/23 01:44 01/07/23 01:45 01/07/23 02:15 Temperature Pulse Rate 84 72 Respiratory Rate Blood Pressure 129/72 143/85 H Pulse Oximetry 98 Oxygen Delivery 01/07/23 02:30 01/07/23 01:19 01/07/23 01:48 Temperature 97.9 F Pulse Rate 76 Respiratory Rate 16 16 Blood Pressure 130/78 Pulse Oximetry Oxygen Delivery 01/07/23 02:45 01/07/23 03
[2023-01-07] MEDS: LABETALOL HCL 100 MG TABLET 200 MG PO ×3 (06:58→17:46)
[2023-01-07] MEDS: ACETAMINOPHEN 500 MG TABLET 1000 MG PO (06:59)
--- NOTE | 2023-01-07 11:08 | WPDANESEPPF ---
Anes - Initial Pre Proc Eval Date/Time: 01/07/23 11:08 Surgeon: Faith Barnes MD Pre Op Diagnosis: iol Patient Data Age: 37 Gender: F Height: 1.7 m Weight: 97.5 kg Last Vital Signs Temp 36.2 C L 01/07/23 07:00 Pulse 73 01/07/23 11:03 Resp 16 01/07/23 05:30 BP 121/73 01/07/23 11:03 Pulse Ox 97 01/07/23 11:07 O2 Del Method Room Air 01/07/23 01:31 Allergies Allergy/AdvReac Type Severity Reaction Status Date / Time Sulfa (Sulfonamide Allergy Intermediate Rash Verified 01/07/23 01:26 Antibiotics) codeine Allergy Mild Itching Verified 01/07/23 01:26 lisinopril Allergy Anaphylaxis Verified 01/07/23 01:26 Home Medications Medication Instructions Recorded Confirmed Type albuterol sulfate 90 mcg/actuation 2 puff inhalation Q4H PRN 01/20/20 01/07/23 History aerosol inhaler Shortness Of Breath acetaminophen 500 mg capsule 1,000 mg PO Q6H PRN fever or pain 09/29/22 01/07/23 History aspirin 81 mg capsule 162 mg PO DAILY 09/29/22 01/07/23 History docusate sodium 100 mg capsule 100 mg PO BID PRN Constipation 09/29/22 01/07/23 History omeprazole 40 mg capsule,delayed 40 mg PO DAILY 09/29/22 01/07/23 History release vit no.95-ferrous 1 tablet PO DAILY 09/29/22 01/07/23 History fumarate 28 mg-folic acid 800 mcg tablet () ferrous sulfate 325 mg (65 mg 160 mg PO DAILY 12/29/22 01/07/23 History iron) tablet (Iron (ferrous sulfate)) labetalol 200 mg tablet 200 mg PO TID 12/29/22 01/07/23 History Laboratory Tests 01/07/23 00:03 WBC 11.2 H K/mm3 (4.5-10.0) RBC 3.60 L M/mm3 (4.2-5.4) Hgb 10.5 L g/dL (12.0-15.0) Hct 32.0 L % (37.0-47.0) MCV 88.9 fl (80-100) MCH 29.2 pg (26-34) MCHC 32.8 g/dl (32-36) RDW 13.3 % (11.5-14.5) Plt Count 192 k/mm3 (150-375) MPV 12.9 H fl (7.4-10.4) Immature Gran % (Auto) 3.3 H % (0-0.5) Neut % (Auto) 69.2 % (45.5-73.1) Lymph % (Auto) 18.2 L % (18.3-44.2) Ritchie % (Auto) 6.8 % (2.6-8.5) Eos % (Auto) 1.9 % (0-4.4) Baso % (Auto) 0.6 % (0.2-1.2) Lymph # (Auto) 2.03 K/mm3 (0.9-3.2) Ritchie # (Auto) 0.8 H K/mm3 (0.1-0.6) Eos # (Auto) 0.2 K/mm3 (0-0.3) Baso # (Auto) 0.1 K/mm3 (0.0-0.1) Abs Immat Gran (auto) 0.37 H K/mm3 (0.00-0.031) Absolute Neuts (auto) 7.7 H K/mm3 (1.3-6.7) Absolute Nucleated RBC 0.0 K/mm3 (0.0-0.012) Nucleated RBC % 0.0 % (0.0-0.2) Sodium 133 L mmol/L (137-145) Potassium 3.6 mmol/L (3.4-5.0) Chloride 106 mmol/L (98-107) Carbon Dioxide 19 L mmol/L (22-30) Anion Gap 8 mmol/L (8-16) BUN 9 mg/dL (7-17) Creatinine 0.70 mg/dL (0.7-1.0) Estim Creat Clear Calc Not Reportable Estimated GFR > 60 (59 - ) Glucose 128 H mg/dL (65-110) Uric Acid 3.8 mg/dL (2.5-7.5) Calcium 8.1 L mg/dL (8.4-10.2) Total Bilirubin 0.3 mg/dL (0.2-1.3) AST 24 U/L (14-36) ALT 24 U/L (6-35) Alkaline Phosphatase 105 U/L (38-126) Total Protein 6.0 L g/dL (6.3-8.2) Albumin 3.3 L g/dL (3.5-5.1) RPR Pending Blood Type AB Positive Antibody Screen Negative Patient hx anesthesia problems: none Family hx anesthesia problems: none Results Review: All pre-operative results and documents have been reviewed as part of the pre-operative evaluation. [facility] Past Medical History Medical History Anemia Anxiety Asthma Bronchitis Frequent headaches IgA nephropathy Nephrolithiasis Scoliosis Stage 1 chronic kidney disease Surgical History Surgical History H/O wisdom tooth extraction Social History Social History Smoking status: Never smoker Substance use: never Lack of Transportation: No Lack of Food: Never True
[2023-01-07 11:25] LABS: Rapid Plasma Reagin Non-Reactive (NonReactive)
[2023-01-07] MEDS: CALCIUM CARBONATE (TUMS) 500 MG (200 MG ELEMENTAL) (12:12)
--- NOTE | 2023-01-07 15:10 | PM.OBPRVD ---
OB - Delivery Note Procedure Delivery date: 01/07/23 Procedure: Events: Chronic Hypertension, Preeclampsia w severe features and Other (chronic renal disease with chronic proteinuria) Induction method: AROM and Per Pitocin Protocol Route of delivery: Laceration Description: None Specimen: Yes Quantitative Blood Loss (ml): 250 Anesthesia type: Epidural Disposition: Floor Narrative: With adequate expulsive efforts by the mother, the baby's head was delivered OA. The baby's anterior shoulder was delivered under the pubic symphysis without difficulty. The posterior shoulder and the rest of the baby delivered without difficulty. The infant was placed on the mothers chest and suctioned and stimulated. The cord was clamped and cut after 30 seconds. Mother and baby both stable. Malcolm Baby Date of : 01/07/23 Time of : 14:52 Weeks of gestation at delivery: 35 Infant gender: Male presentation: vertex Placenta delivery description: Spontaneous Cord Vessel Description: 3 Vessels, Nuchal Cord and Delayed Cord Clamping Narrative: weight and apgars pending per nursery
[2023-01-07] MEDS: OXYTOCIN 30 UNITS/NS 500 ML 30 UNITS/500 ML BAG 125 UNITS IV CONT (15:16)
[2023-01-07] MEDS: ACETAMINOPHEN 325 MG TABLET 650 MG PO (16:04)
--- NOTE | 2023-01-07 17:30 | PC.NURSE ---
Patient transferred to post room # [id number] via ( w/c ). Support person present. Oriented to unit, room, information board, rooming in, admission packet and security measures. Patient verbalizes understanding.
[2023-01-07] MEDS: DOCUSATE SODIUM 100 MG CAPSULE PO (17:47)
[2023-01-07] MEDS: PANTOPRAZOLE 40 MG TABLET PO (17:47)
[2023-01-07] MEDS: IBUPROFEN 600 MG TABLET PO (17:54)
[2023-01-07] MEDS: WITCH HAZEL 40 PADS 1 PAD TOPICAL (18:13)
[2023-01-07] MEDS: BENZOCAINE 20% AER SPR (*SP) 56 GM CAN 1 SPRAY TOPICAL (18:14)
[2023-01-07] MEDS: ONDANSETRON INJ 4 MG/2 ML VIAL IV PUSH (18:30)
[2023-01-07] MEDS: LACTATED RINGERS 1,000 ML 75 ML (22:38)
[2023-01-08] VITALS (10 sets, daily range): BP systolic 119–141; BP diastolic 68–94; PULSE 60–80; RESP 14–16; TEMP 36.5–37.6; O2SAT 97–100
[2023-01-08] MEDS: ACETAMINOPHEN 325 MG TABLET 650 MG PO ×2 (03:57→13:09)
[2023-01-08 05:11] LABS: Hematocrit 34.3 % (37.0-47.0); Hemoglobin 11.4 g/dL (12.0-15.0)
[2023-01-08] MEDS: LABETALOL HCL 100 MG TABLET 200 MG PO ×3 (09:11→17:12)
[2023-01-08] MEDS: MULTIVIT/MIN/PREN/FOL AC/IRON TABLET 1 TAB PO (09:12)
[2023-01-08] MEDS: IBUPROFEN 600 MG TABLET PO ×2 (09:13→17:18)
[2023-01-08] MEDS: PANTOPRAZOLE 40 MG TABLET PO ×2 (09:13→17:16)
[2023-01-08] MEDS: DOCUSATE SODIUM 100 MG CAPSULE PO ×2 (09:18→17:16)
[2023-01-08] MEDS: MAGNESIUM SULF 20GM/WATER500ML 500 ML 50 MG IV CONT (09:21)
--- NOTE | 2023-01-08 11:10 | WPDANLDPN2 ---
Anes-Prog Note L&D Date/Time: 01/08/23 11:10 Comfortable throughout: labor and delivery Epidural/Spinal procedure site: clean & non-tender Neuro status: Neuro function grossly intact.on Mg. patient feels weak but otherwise normal Cardiovascular status: normal Respiratory status: normal Airway patency: baseline Mental status: baseline Post-Op hydration status: normal Vital Signs: Last Vital Signs Temp 37.1 C 01/08/23 07:27 Pulse 71 01/08/23 09:11 Resp 16 01/08/23 09:05 BP 136/93 H 01/08/23 09:05 Pulse Ox 98 01/08/23 09:05 O2 Del Method Room Air 01/07/23 01:31 Pain score (VAS): 3 I/O: Intake & Output 01/07/23 01/08/23 01/08/23 23:59 07:59 15:59 Intake Total 1150 500 Output Total 2805 600 Balance -1655 -600 500 Post-procedural complaints: none Patient feedback: Patient satisfied with anesthetic care.
[2023-01-08] MEDS: LACTATED RINGERS 1,000 ML 75 ML IV CONT (12:12)
--- NOTE | 2023-01-08 16:06 | PM.GYNPNOP ---
CHIEF CRUISER - A/P Time Spent With Patient Time: Total time spent is greater than 50% in coordination of care (as documented) at patient's floor/unit and/or counseling patient: Time with patient: less than 15 minutes CHIEF CRUISER- PN:Dar Post-Op Subjective Date/time seen: 01/08/23 16:06 Exam Const: General: comfortable, no acute distress and alert Resp: Effort & Inspection: normal respiratory effort Auscultation: no crackles, no rales and no rhonchi Cardio: Rate: regular rate Heart sounds: no click, no murmurs and no rubs GI: Inspection: non-distended GI Palp: No Tenderness to palpation present (GI) Auscultation: normal bowel sounds Other: Incision - CDI Extrem: General: normal to inspection, no pedal edema and no calf tenderness CHIEF CRUISER - PN: Obj Data Vital Signs Vital Signs: Vital Signs - 24 hr 01/07/23 16:07 01/07/23 16:12 01/07/23 16:15 Temperature Pulse Rate 71 Respiratory Rate Blood Pressure 132/80 Pulse Oximetry 98 99 01/07/23 16:17 01/07/23 16:22 01/07/23 16:27 Temperature Pulse Rate Respiratory Rate Blood Pressure Pulse Oximetry 97 98 96 01/07/23 16:30 01/07/23 16:32 01/07/23 16:37 Temperature Pulse Rate 72 Respiratory Rate Blood Pressure 133/84 Pulse Oximetry 96 98 01/07/23 16:42 01/07/23 16:45 01/07/23 16:47 Temperature Pulse Rate 72 Respiratory Rate Blood Pressure 127/72 Pulse Oximetry 97 97 01/07/23 16:52 01/07/23 16:57 01/07/23 17:00 Temperature Pulse Rate 76 Respiratory Rate Blood Pressure 159/89 H Pulse Oximetry 97 98 01/07/23 17:02 01/07/23 17:07 01/07/23 17:46 Temperature Pulse Rate 76 Respiratory Rate Blood Pressure Pulse Oximetry 98 99 01/07/23 20:36 01/08/23 00:30 01/08/23 03:46 Temperature 97.9 F 97.9 F Pulse Rate 68 60 80 Respiratory Rate 18 16 16 Blood Pressure 127/74 138/88 141/94 H Pulse Oximetry 97 97 98 01/08/23 07:27 01/08/23 09:11 01/08/23 09:05 Temperature 98.7 F Pulse Rate 80 71 71 Respiratory Rate 14 16 Blood Pressure 119/68 136/93 H Pulse Oximetry 100 98 01/08/23 12:45 01/08/23 13:09 Temperature 97.7 F Pulse Rate 72 76 Respiratory Rate 14 Blood Pressure 127/86 Pulse Oximetry 100 Intake/Output Intake/Output: Intake & Output 01/05/23 01/06/23 01/07/23 01/08/23 23:59 23:59 23:59 23:59 Intake Total 2900 500 Output Total 4155 600 Balance -1255 -100 Meds/Results Medications: Active Medications Generic Name Dose Route Start Last Admin Trade Name Freq PRN Reason Stop Dose Admin Acetaminophen 650 mg 01/07/23 15:15 01/08/23 13:09 Acetaminophen 325 Mg Tablet PO 650 mg Q6H PRN Administration Mild Pain (1-3) or Headache Benzocaine 1 spray 01/07/23 15:15 01/07/23 18:14 Benzocaine 20% Aer Spr (*Sp) 56 Gm Can TOPICAL 1 spray PRN PRN Administration Perineal Discomfort Dibucaine 1 applic 01/07/23 15:15 Dibucaine 1% Ointment 30 Gm Tube TOPICAL PRN PRN Hemorrhoids Docusate Sodium 100 mg 01/07/23 15:15 01/08/23 09:18 Docusate Sodium 100 Mg Capsule PO 100 mg BID PRN Administration Constipation Emollient Ointment 1 applic 01/07/23 15:15 Lanolin (Lansinoh) 7.5 Gm Cream TOPICAL PRN PRN Sore Nipples Magnesium Sulfate 500 mls @ 50 mls/hr 01/06/23 23:55 01/08/23 09:21 Magnesium Sulf 20gm/Cyaji292ot IV CONT 50 mls/hr .Q10H ITZ Administration Lactated Ringer's 1,000 mls @ 75 mls/hr 01/08/23 12:05 01/08/23 12:12 Lr - Lactated Ringers Iv IV CONT 75 mls/hr .[id number] ITZ Administration Ibuprofen 600 mg 01/07/23 15:15 01/08/23 09:13 Ibuprofen 600 Mg Tablet PO 600 mg Q6H PRN Administration Cramping Labetalol HCl 200 mg 01/07/23 17:00 01/08/23 13:09 Labetalol Hcl 100 Mg Tablet PO 200 mg TID ITZ Administration Ondansetron HCl 4 mg 01/07/23 15:15 01/07/23 18:30 Ondansetron Inj 4 Mg/2 Ml Vial IV PUSH 4 mg Q
[2023-01-09 00:20] VITALS: BP 148/90; PULSE 70
[2023-01-09] MEDS: IBUPROFEN 600 MG TABLET PO (00:23)
[2023-01-09 05:15] VITALS: BP 145/88; PULSE 64
[2023-01-09 09:00] VITALS: BP 145/89; PULSE 82; RESP 16; TEMP 37.1
--- NOTE | 2023-01-09 09:05 | PM.OBPNVD ---
OB - PN: Subj Subjective Date/time seen: 01/09/23 09:05 s/p vaginal delivery day 2, doing well, flatus present OB - PN: Obj Data Labs 01/08/23 03:45 01/07/23 00:03 OB - PN A/P Time Spent With Patient Time: Total time spent is greater than 50% in coordination of care (as documented) at patient's floor/unit and/or counseling patient: Review of Systems Review of Systems: All systems reviewed & are unremarkable except as noted in HPI and below Exam Const: General: cooperative Chest: Chest palpation & inspection: normal inspection of the chest Resp: Effort & Inspection: normal respiratory effort and able to speak in complete sentences Auscultation: clear to auscultation bilaterally Cardio: Rate: regular rate Rhythm: regular rhythm GI: Inspection: normal to inspection Skin: General skin exam: normal color Extrem: General: normal to inspection Right lower extremity: normal to inspection Left lower extremity: normal to inspection Psych: Appearance: grossly normal
--- NOTE | 2023-01-09 09:07 | PM.OBDSVD ---
DS: Admitting Diagnosis Discharge Date 01/09/23 Admitting Diagnosis chronic hTN, superimposed preeclampsia DS: Discharge Diagnosis Discharge Diagnosis (1) Vaginal delivery: Code(s): O80 - Encounter for full-term uncomplicated delivery Status: Acute OB - DS: Summary OB Procedures : PIH Mgmt OB Procedures Intrapartum: Spontaneous Vag Delivery OB Procedures: : None Time Spent with Patient Time attestation: Total time spent providing and/or coordinating discharge services: DS: Data Data Completed and Pending Pending studies at discharge: Pending at discharge 01/07/23 16:39 Surgical [PTH] Routine Discharge Plan Discharge Attending physician on discharge: Puneet Mooney Discharging Clinician: Mary Rios Patient Disposition: Home, Self-Care Activity: pelvic rest Diet: regular Patient Instructions: Antibiotic Form Stand Alone Forms: General Discharge Information Follow-up/Referrals: Faith Barnes MD [Physician] - 1 Week Discharge Medications: Continued omeprazole 40 mg capsule,delayed release(DR/EC) 40 mg PO DAILY docusate sodium 100 mg capsule 100 mg PO BID PRN (Reason: Constipation) PNV [id number] fumarate-FA [] 28 mg iron- 800 mcg Tablet 1 tablet PO DAILY aspirin 81 mg Capsule 162 mg PO DAILY acetaminophen 500 mg capsule 1,000 mg PO Q6H PRN (Reason: fever or pain) albuterol sulfate 90 mcg/actuation HFA aerosol inhaler 2 puff INHALATION Q4H PRN (Reason: Shortness Of Breath) labetalol 200 mg Tablet 200 mg PO TID ferrous sulfate [Iron (ferrous sulfate)] 325 mg (65 mg iron) Tablet 160 mg PO DAILY Date of admission: 01/06/23 23:45 Primary Care Provider: Shante,Rocael Rendon Admitting Provider: Faith Barnes Attending physician on admission: Faith Barnes Condition: Stable
[2023-01-09] MEDS: ACETAMINOPHEN 325 MG TABLET 650 MG PO (09:55)
[2023-01-09 09:56] VITALS: PULSE 76
[2023-01-09] MEDS: PANTOPRAZOLE 40 MG TABLET PO (09:56)
[2023-01-09] MEDS: DOCUSATE SODIUM 100 MG CAPSULE PO (09:56)
[2023-01-09] MEDS: LABETALOL HCL 100 MG TABLET 200 MG PO ×2 (09:56→14:39)
[2023-01-09 12:30] VITALS: BP 130/82; PULSE 76; RESP 18; TEMP 36.7
[2023-01-09 14:39] VITALS: PULSE 80
[2023-01-09] MEDS: WITCH HAZEL 40 PADS 1 PAD TOPICAL (14:40)
--- NOTE | 2023-01-09 16:00 | PC.NURSE ---
Patient viewed the discharge video Mother & Baby Care, The First Two Weeks . Patient was given the opportunity and encouraged to ask questions. Patient verbalized understanding of information shared and has been given the mother/baby guide for home reference.
[2023-01-11 09:00] VITALS: BP 132/83; PULSE 78; RESP 20; TEMP 36.6; O2SAT 96
== END 2023-01-09 17:05 | disposition home or self-care (01) | DRG 807 ==
LOC: ANHLDR 01-07 08:33 → ANHOB2 01-07 17:55
PROVIDERS: Admitting Provider Obstetrics & Gynecology; PCP Internal Medicine; Visit Provider Obstetrics & Gynecology
DX: O11.4 Pre-existing hypertension with pre-eclampsia, complicating childbirth (principal); Z37.0 Single live birth; O99.52 Diseases of the respiratory system complicating childbirth; J45.909 Unspecified asthma, uncomplicated; I12.9 Hypertensive chronic kidney disease with stage 1 through stage 4 chronic kidney disease, or unspecified chronic kidney disease; N18.1 Chronic kidney disease, stage 1; Z3A.35 35 weeks gestation of pregnancy
CPT/HCPCS: 36415; 80053; 84550; 85014; 85018; 85025; 86592; 86850; 86900; 86901; 88307; A9270; J0290; J2405; J2590; J2795; J3475; J7120